=== PATIENT | female | born 1980 | race Caucasian/White ===

== ENCOUNTER → 2016-08-02 | Outpatient (CLI) | payer BC, OTHER | LOC: KOH-I 10:39 | DX: N20.0 Calculus of kidney (principal) | CPT/HCPCS: 74000 ==

== ENCOUNTER 2020-10-24 14:47 | Emergency (ER) | payer BC, OTHER ==
[~2020-10-24 14:47] MED LIST: ERYTHROMYCIN O3.5 GM OD
[2020-10-24 15:43] LABS: HEMOGLOBIN 13.9 gm/dl (12.3-15.3); RED BLOOD COUNT 4.63 M/UL (4.00-5.10); WHITE BLOOD COUNT 6.7 K/UL (4.5-11.0)
[2020-10-24 16:20] LABS: BUN/CREATININE RATIO 15 (0-10)
[2020-10-24] MEDS ORDERED: ONDANSETRON ODT4 MG SL (18:10)
[2020-10-24] MEDS ORDERED: TORADOL 10 MG T10 MG PO (18:10)
== END 2020-10-24 18:19 | disposition home or self-care (01) ==
LOC: ER1 14:47
PROVIDERS: Physician Assistant
DX: R10.31 Right lower quadrant pain (principal); Z87.442 Personal history of urinary calculi; E03.9 Hypothyroidism, unspecified; Z90.49 Acquired absence of other specified parts of digestive tract; Z88.5 Allergy status to narcotic agent; F17.200 Nicotine dependence, unspecified, uncomplicated; Z98.891 History of uterine scar from previous surgery
CPT/HCPCS: 80053; 81001; 83690; 84703; 85025; 96374; 96375; 99284; J1885; J2405; J7030; Q9967

== ENCOUNTER 2021-02-11 00:11 | Emergency (ER) | payer BC ==
[~2021-02-11 00:11] MED LIST changes: +ONDANSETRON ODT4 MG SL; +TORADOL 10 MG T10 MG PO
[2021-02-11 00:55] LABS: HEMOGLOBIN 14.4 gm/dl (12.3-15.3); RED BLOOD COUNT 4.76 M/UL (4.00-5.10); WHITE BLOOD COUNT 3.9 K/UL (4.5-11.0)
[2021-02-11 01:19] LABS: BUN/CREATININE RATIO 21 (0-10)
[2021-02-11] MEDS ORDERED: DELSYM30 MG/5 ML PO (01:59)
[2021-02-11] MEDS ORDERED: PROAIR HFA8.5 GM INH (01:59)
== END 2021-02-11 02:09 | disposition home or self-care (01) ==
LOC: ER1 00:11
PROVIDERS: Physician Assistant Medical
DX: U07.1 COVID-19 (principal); Z88.5 Allergy status to narcotic agent; F17.290 Nicotine dependence, other tobacco product, uncomplicated
CPT/HCPCS: 71045; 80053; 84484; 85025; 93005; 96372; 99285; J1100